=== PATIENT | female | born 1995 | race Caucasian/White ===

== ENCOUNTER 2022-12-31 23:01 | Emergency (ER) | payer MEDICAID, SELFPAY ==
[2022-12-31] MEDS ORDERED: LORazepam 2 MG/ML SYR.(CARPUJECT) ONE (23:22)
== END 2023-01-01 01:53 | disposition home or self-care (01) ==
LOC: EDBD 23:01 → ERS 23:01
DX: F41.9 Anxiety disorder, unspecified (principal)
CPT/HCPCS: 93005; 96374; J2060

== ENCOUNTER 2024-05-29 11:09 | Outpatient (CLI) | payer OTHER | END 2024-05-29 11:10 | disposition home or self-care (01) | LOC: ULT 11:09 | PROVIDERS: ATTEND Family Medicine | DX: O09.892 Supervision of other high risk pregnancies, second trimester (principal); Z3A.20 20 weeks gestation of pregnancy | CPT/HCPCS: 76805 ==